=== PATIENT | female | born 1950 | race Caucasian/White ===

== ENCOUNTER 2021-12-25 13:04 | Outpatient (CLI) | payer OTHER, MEDICAID | END 2021-12-25 13:05 | disposition home or self-care (01) | LOC: LABBT 13:04 | PROVIDERS: ATTEND Internal Medicine Cardiovascular Disease | DX: Z20.822 Contact with and (suspected) exposure to COVID-19 (principal) | CPT/HCPCS: 87811 ==

== ENCOUNTER 2021-12-30 05:55 | Day surgery (SDC) | payer OTHER, MEDICAID ==
[2021-12-25 12:18] VITALS: BMI 39.6
[2021-12-30] MEDS ORDERED: Lidocaine Viscous Sol 2% 15 ml UD Cup ONE (07:01)
[2021-12-30] MEDS ORDERED: PROPOFOL 40 ML ONE (07:01)
== END 2021-12-30 10:25 | disposition home or self-care (01) ==
LOC: SDC 05:55
PROVIDERS: ATTEND Internal Medicine Cardiovascular Disease
PROC: B246ZZ4 Ultrasonography of Right and Left Heart, Transesophageal (ICD-10-PCS; principal; 2021-12-30)
DX: I33.0 Acute and subacute infective endocarditis (principal); I08.1 Rheumatic disorders of both mitral and tricuspid valves; I11.0 Hypertensive heart disease with heart failure; I50.9 Heart failure, unspecified; I47.20 Ventricular tachycardia, unspecified; I42.0 Dilated cardiomyopathy; I77.810 Thoracic aortic ectasia; E78.2 Mixed hyperlipidemia; Z79.899 Other long term (current) drug therapy; Z88.2 Allergy status to sulfonamides; Z91.040 Latex allergy status; Z95.810 Presence of automatic (implantable) cardiac defibrillator
CPT/HCPCS: 93312; J2704

== ENCOUNTER 2022-03-19 10:33 | Outpatient (CLI) | payer OTHER, MEDICAID | END 2022-03-19 10:34 | disposition home or self-care (01) | LOC: BICCT 10:33 | PROVIDERS: ATTEND Internal Medicine Cardiovascular Disease | DX: I77.810 Thoracic aortic ectasia (principal); J43.2 Centrilobular emphysema; R91.8 Other nonspecific abnormal finding of lung field | CPT/HCPCS: 71250 ==

== ENCOUNTER 2022-04-10 12:49 | Outpatient (CLI) | payer OTHER, MEDICAID ==
[2022-04-10] MEDS ORDERED: Iopamidol-370 76% 500 ML 1 ML ONE (15:12)
== END 2022-04-10 12:50 | disposition home or self-care (01) ==
LOC: BICCT 12:49
PROVIDERS: ATTEND Internal Medicine Cardiovascular Disease
DX: I77.810 Thoracic aortic ectasia (principal); R91.1 Solitary pulmonary nodule; K44.9 Diaphragmatic hernia without obstruction or gangrene
CPT/HCPCS: 71260; 82565; Q9967